=== PATIENT | female | born 1955 | race Caucasian/White ===

== ENCOUNTER 2017-08-12 23:14 | Emergency (ER) | payer MEDICARE ==
[2017-08-12 23:49] LABS: BASOPHILS # (AUTO) 0.1 10^3/uL (0.0-0.1); BASOPHILS % (AUTO) 1.1 %; EOSINOPHILS # (AUTO) 0.2 10^3/uL (0.0-0.7); EOSINOPHILS % (AUTO) 2.8 %; HGB - HEMOGLOBIN 14.4 g/dL (12.0-16.0); LYMPHOCYTES # (AUTO) 2.4 10^3/uL (1.5-3.5); LYMPHOCYTES % (AUTO) 28.7 %; MEAN CORPUSCULAR HEMOGLOBIN 31.3 pg (27.0-31.0); MEAN CORPUSCULAR HGB CONC 34.8 g/dL (32.0-36.0); MEAN CORPUSCULAR VOLUME 89.8 fL (81.0-99.0); MEAN PLATELET VOLUME 8.3 fL (7.9-10.8); MONOCYTES # (AUTO) 0.8 10^3/uL (0.0-1.0); MONOCYTES % (AUTO) 10.1 %; NEUTROPHILS # (AUTO) 4.7 10^3/uL (1.5-6.6); NEUTROPHILS % (AUTO) 57.3 %; PLT - PLATELET COUNT 261 10^3/uL (130-450); RED BLOOD COUNT 4.59 10^6/uL (4.20-5.40); RED CELL DISTRIBUTION WIDTH 12.9 % (12.0-15.0); WHITE BLOOD COUNT 8.3 x10^3/uL (4.8-10.8)
[2017-08-13 00:01] LABS: ALBUMIN 4.5 g/dL (3.2-5.5); ALBUMIN/GLOBULIN RATIO 1.6 (1.0-2.2); BILIRUBIN,TOTAL 0.4 mg/dL (0.2-1.0); CALCIUM 9.3 mg/dL (8.5-10.3); CREATININE 0.6 mg/dL (0.4-1.0); TOTAL PROTEIN 7.4 g/dL (6.7-8.2)
--- NOTE | 2017-08-13 00:05 | ED Physician Documentation ---
History of Present Illness - Stated complaint Stated Complaint: FLANK/ABD PAIN - Chief complaint Chief Complaint: Back Pain - History obtained from History obtained from: Patient - History of Present Illness Timing: How many days ago (3) Pain level now: 5 Improved by: no ameliorating factors Worsened by: no exacerbating factors - Additonal information Additional information: c/o diarrhea x 1 week with chief complaint of bilateral LBP, LLQ pain and nausea x 3 days. 5 days of burning dysuria. Review of Systems Constitutional: denies: Fever, Chills, Sweats Cardiac: reports: Reviewed and negative Respiratory: reports: Reviewed and negative GI: reports: Abdominal Pain, Nausea, Diarrhea. denies: Vomiting, Constipation : reports: Dysuria. 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 - Present Medications Home Medications: Ambulatory Orders Medication Instructions Recorded Confirmed ALPRAZolam [Xanax] 0.25 mg 08/13/14 08/13/14 HYDROcod/ACETAM 5/325 [Vicodin 1 tab 08/13/14 08/13/14 5/325] Oxycodone HCl/Acetaminophen 1 each PO Q6H PRN #20 tablet 08/13/14 [Percocet 5-325 mg Tablet] predniSONE [Deltasone] 40 mg PO DAILY 3 Days tablet 08/13/14 Hydrocodone/Acetaminophen 1 - 2 each PO Q6HR PRN #14 tablet 08/13/17 [Hydrocodon-Acetaminophen 5-325] Ondansetron Odt [Zofran] 4 mg TL Q6H PRN #10 tablet 08/13/17 - Allergies Allergies/Adverse Reactions: Allergies Allergy/AdvReac Type Severity Reaction Status Date / Time Penicillins Allergy Rash Verified 08/12/17 23:22 Sulfa (Sulfonamide Allergy Anaphylaxis Verified 08/12/17 23:22 Antibiotics) - Social History Does the pt smoke?: Yes Smoking Status: Current every day smoker Does the pt drink ETOH?: No Does the pt have substance abuse?: No - Immunizations Immunizations are current?: Yes PD ED PE NORMAL - Vitals Vital signs reviewed: Yes - General General: Alert and oriented X 3, No acute distress, Well developed/nourished - HEENT HEENT: Moist mucous membranes - Neck Neck: Supple, no meningeal sign - Cardiac Cardiac: RRR, No murmur - Respiratory Respiratory: No respiratory distress, Clear bilaterally - Abdomen Abdomen: Normal bowel sounds, Soft, Other (LLQ and periumbilical tenderness to palpation without rebound or guarding) - Back Back: No CVA TTP - Derm Derm: Normal color, Warm and dry Results - Vitals Vitals: Oxygen O2 Source Room air - Labs Labs: Laboratory Tests 08/12/17 08/12/17 08/12/17 23:25 23:40 23:40 WBC 8.3 RBC 4.59 Hgb 14.4 Hct 41.2 MCV 89.8 MCH 31.3 H MCHC 34.8 RDW 12.9 Plt Count 261 MPV 8.3 Neut # 4.7 Lymph # 2.4 [place] # 0.8 Eos # 0.2 Baso # 0.1 Absolute Nucleated RBC 0.00 Nucleated RBC % 0.0 Sodium 136 Potassium 3.8 Chloride 102 Carbon Dioxide 26 Anion Gap 8.0 BUN 14 Creatinine 0.6 Estimated GFR (MDRD) 102 Glucose 110 H Calcium 9.3 Total Bilirubin 0.4 AST 22 ALT 18 Alkaline Phosphatase 48 Total Protein 7.4 Albumin 4.5 Globulin 2.9 Albumin/Globulin Ratio 1.6 Lipase 27 Urine Color YELLOW Urine Clarity CLEAR Urine pH 5.0 Ur Specific [place] >=1.030 H Urine Protein NEGATIVE Urine Glucose (UA) NEGATIVE Urine Ketones 15 H Urine Occult Blood LARGE H Urine Nitrite NEGATIVE Urine Bilirubin NEGATIVE Urine Urobilinogen 0.2 (NORMAL) Ur Leukocyte Esterase NEGATIVE Urine RBC 6-10 H Urine WBC 0-3 Ur Squamous Epith Cells FEW Squamous Urine Bacteria Few Urine Mucus Few Strands Urine Culture Comments NOT INDICATED - Rads (name of study) CT A/P Radiology: Prelim report reviewed, See rad report PD MEDICAL DECISION MAKING - ED course Complexity details: reviewed results, re-evaluated patient, considered differential, d/w patient, d/w family Departure - Departure Disposition: 01 Home, Self Care Clinical Impression: Abdominal pain Qualifiers: Abdominal location: generalized Qualified Code(s): R10.84 - Generalized abdominal pain Condition: Good Instructions: ED Abdominal Pain Unkn Cause, ED Food Poison Or Gastroenteritis Follow-Up: [facility] [Provider Group] [facility] [Provider Group] Prescriptions: Hydrocodone/Acetaminophen [Hydrocodon-Acetaminophen 5-325] 1 - 2 each PO Q6HR PRN #14 tablet PRN Reason: Pain Ondansetron Odt [Zofran] 4 mg TL Q6H PRN #10 tablet PRN Reason: Nausea / Vomiting Forms: Activity restrictions Discharge Date/Time: 08/13/17 02:49
[2017-08-13 00:15] LABS: BILIRUBIN,URINE NEGATIVE (NEGATIVE); GLUCOSE, URINE (UA) NEGATIVE (NEGATIVE); KETONES,URINE (UA) 15 mg/dL (NEGATIVE); LEUKOCYTE ESTERASE, URINE NEGATIVE (NEGATIVE); NITRITE,URINE NEGATIVE (NEGATIVE); OCCULT BLOOD,URINE LARGE (NEGATIVE); PROTEIN,URINE NEGATIVE (NEGATIVE); UROBILINOGEN,URINE 0.2 (NORMAL) E.U./dL (NORMAL)
[2017-08-13 00:16] LABS: CLARITY,URINE CLEAR (CLEAR)
[2017-08-13 00:21] LABS: BACTERIA,URINE Few /HPF (None Seen); MUCUS,URINE Few Strands; SQUAMOUS EPITHELIAL CELL,UR FEW Squamous (<= Few)
[2017-08-13] MEDS ORDERED: KETOROLAC 60 MG/2 ML VIAL IVP STA (00:31)
[2017-08-13] MEDS ORDERED: ONDANSETRON 4 MG/2 ML VIAL IVP STA (00:31)
[2017-08-13] MEDS ORDERED: SODIUM CHLORIDE 0.9% 1,000 ML IV STA (00:31)
[2017-08-13] MEDS ORDERED: ONDANSETRON 4 MG/2 ML VIAL ONE (00:46)
[2017-08-13] MEDS ORDERED: IOPAMIDOL-300 100 ML VIAL ONE (00:56)
[2017-08-13] MEDS ORDERED: IOPAMIDOL-300 100 ML VIAL IVP ONE (01:18)
--- NOTE | 2017-08-13 01:26 | CT Preliminary Report ---
Exam: CT ABDOMEN/PELVIS W/ IMPRESSION: 1. Nonspecific nondilated fluid-filled small bowel loops with liquid stool in the right hemicolon. Mi ld enteritis could have this appearance. 2. Appendix is not well seen. No evidence of appendicitis. 3. No other acute abnormality seen. [facility] SITE ID: [id number]
--- NOTE | 2017-08-13 01:26 | CT Report ---
EXAM: CT ABDOMEN AND PELVIS EXAM DATE: 08/13/2017 01:02 AM. CLINICAL HISTORY: Lower abdominal pain and flank pain. Nausea and vomiting. COMPARISONS: None. TECHNIQUE: Routine helical CT imaging was performed through the abdomen and pelvis. IV contrast: 100 ML ISOVUE 300. Enteric contrast: No. Reconstructions: Coronal and sagittal. In accordance with CT protocol optimization, one or more of the following dose reduction techniques w ere utilized for this exam: automated exposure control, adjustment of mA and/or KV based on patient s ize, or use of iterative reconstructive technique. FINDINGS: Lung Bases: Minimal bibasilar atelectasis. Liver: No focal lesion identified. Gallbladder/Bile Ducts: Status post cholecystectomy. Spleen: Normal. Pancreas: Normal. Adrenal Glands: Normal. Kidneys: Normal. No masses or hydronephrosis. Peritoneal Cavity/Bowel: No bowel obstruction seen. Multiple nondilated fluid-filled small bowel loop s. There is some liquid stool in the right hemicolon as well. No diverticulitis. No lymphadenopathy. No free air or free fluid. Appendix is not well seen. No evidence of appendicitis. Pelvic Organs: Uterus is not seen. Visualized pelvic organs are otherwise unremarkable. Vasculature: Mild atherosclerosis. No aortic aneurysm. Bones: Grade 1 degenerative spondylolisthesis at L5-S1. Mild spinal stenosis. Other: None. IMPRESSION: 1. Nonspecific nondilated fluid-filled small bowel loops with liquid stool in the right hemicolon. Mi ld enteritis could have this appearance. 2. Appendix is not well seen. No evidence of appendicitis. 3. No other acute abnormality seen. [facility] Referring Provider Line: [phone] SITE ID: [id number]
[2017-08-13] MEDS ORDERED: HYDROcod/ACET 5/325 Prepack 4 PO STA (02:29)
[2017-08-13 02:48] VITALS: BP 121/94
== END 2017-08-13 02:49 | disposition home or self-care (01) ==
LOC: ED 23:14
DX: R10.84 Generalized abdominal pain (principal); F17.200 Nicotine dependence, unspecified, uncomplicated
CPT/HCPCS: 36415; 74177; 80053; 81001; 83690; 85025; 96361; 96374; 96375; 99283; 99284; Q9967; 81003; 87086

== ENCOUNTER 2017-12-07 13:52 | Emergency (ER) | payer MEDICARE ==
[2017-12-07] MEDS ORDERED: SODIUM CHLORIDE 0.9% 1,000 ML IV ONE (14:09)
[2017-12-07] MEDS ORDERED: ONDANSETRON 4 MG/2 ML VIAL IVP STA (14:09)
--- NOTE | 2017-12-07 14:13 | ED Physician Documentation ---
History of Present Illness - Stated complaint Stated Complaint: NAUSEATED - Chief complaint Chief Complaint: General - History obtained from History obtained from: Patient, Family - History of Present Illness Timing: Other (This is a 62-year-old woman with no significant past medical history. She had a remote hysterectomy. Over the last year or 2 she has noted skin sensitivity and wondered if she might have fibromyalgia. Then about 4 months ago she developed constant nausea. She was seen here and treated with antiemetics with good relief and CT was done and grossly normal peer a week ago she had a biopsy of a lesion on the left cheek while she was visiting the die designer apprentice for Botox injections. The biopsy came back positive for melanoma. Ever since the biopsy she has had a left retro-orbital headache and pain radiating down into the neck with a feeling of anterior neck swelling and chest pressure. There is no shortness of breath with it. She also notes a 30 pound weight loss over the last couple of years.) Review of Systems Constitutional: reports: Fatigue, Weight Loss. denies: Fever, Chills Ears: denies: Loss of hearing, Ear pain Nose: denies: Rhinorrhea / runny nose, Congestion Throat: denies: Sore throat Cardiac: reports: Chest pain / pressure. 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 - Present Medications Home Medications: Ambulatory Orders Medication Instructions Recorded Confirmed ALPRAZolam [Xanax] 0.25 mg 08/13/14 08/13/14 HYDROcod/ACETAM 5/325 [Vicodin 1 tab 08/13/14 08/13/14 5/325] Oxycodone HCl/Acetaminophen 1 each PO Q6H PRN #20 tablet 08/13/14 [Percocet 5-325 mg Tablet] predniSONE [Deltasone] 40 mg PO DAILY 3 Days tablet 08/13/14 Hydrocodone/Acetaminophen 1 - 2 each PO Q6HR PRN #14 tablet 08/13/17 [Hydrocodon-Acetaminophen 5-325] Ondansetron Odt [Zofran] 4 mg TL Q6H PRN #10 tablet 08/13/17 Zolpidem [Ambien] 5 mg PO HS #30 tablet 12/07/17 - Allergies Allergies/Adverse Reactions: Allergies Allergy/AdvReac Type Severity Reaction Status Date / Time Penicillins Allergy Rash Verified 08/12/17 23:22 Sulfa (Sulfonamide Allergy Anaphylaxis Verified 08/12/17 23:22 Antibiotics) - Social History Does the pt smoke?: Yes Smoking Status: Current every day smoker Does the pt drink ETOH?: No Does the pt have substance abuse?: No - Immunizations Immunizations are current?: Yes PD ED PE NORMAL - Vitals Vital signs reviewed: Yes - General General: Alert and oriented X 3, No acute distress - HEENT HEENT: PERRL, EOMI, Pharynx benign, Other (In the left infraorbital area there is a sutured biopsy lesion without signs of infection. No facial swelling.) - Neck Neck: Supple, no meningeal sign, No bony TTP, Other (I do not appreciate any swelling or adenopathy or glandular hypertrophy.) - Cardiac Cardiac: RRR, No murmur - Respiratory Respiratory: No respiratory distress, Other (Mildly diminished throughout with some rhonchi but nothing focal. Nonlabored.) - Abdomen Abdomen: Normal bowel sounds, Non tender - Back Back: No CVA TTP, No spinal TTP - Derm Derm: Normal color, Warm and dry - Extremities Extremities: No edema, No calf tenderness / cord - Neuro Neuro: Alert and oriented X 3, Normal speech Eye Opening: Spontaneous Motor: Obeys Commands Verbal: Oriented GCS Score: 15 - Psych Psych: Normal mood, Normal affect Results - Vitals Vitals: Vital Signs - 24 hr 12/07/17 14:03 Temperature 37.1 C Heart Rate 103 H Respiratory 18 Rate Blood Pressure 184/107 H O2 Saturation 99 Oxygen O2 Source Room air - EKG (time done) 1416 Rate: Rate (enter#) (95) Rhythm: NSR [place]: Normal Intervals: Normal [place], Other (LAFB) QRS: Normal Ischemia: Normal ST segments Computer interpretation: Agree with computer - Labs Labs: Laboratory Tests 12/07/17 12/07/17 12/07/17 14:20 14:20 14:20 WBC 8.2 RBC 4.61 Hgb 14.3 Hct 41.4 MCV 89.8 MCH 31.0 MCHC 34.6 RDW 13.0 Plt Count 273 MPV 8.2 Neut # (Auto) 4.8 Lymph # (Auto) 2.1 [place] # (Auto) 0.9 Eos # (Auto) 0.2 Baso # (Auto) 0.1 Absolute Nucleated RBC 0.00 Nucleated RBC % 0.0 Sodium 138 Potassium 3.7 Chloride 104 Carbon Dioxide 26 Anion Gap 8.0 BUN 12 Creatinine 0.6 Estimated GFR (MDRD) 102 Glucose 109 H Calcium 9.1 Total Bilirubin 0.5 AST 24 ALT 16 Alkaline Phosphatase 43 Troponin I < 0.04 Total Protein 7.3 Albumin 3.8 Globulin 3.5 Albumin/Globulin Ratio 1.1 Lipase 29 - Rads (name of study) 2v chest Radiology: EMP read contemporaneously (Normal) CT Head Radiology: EMP read contemporaneously (normal) PD MEDICAL DECISION MAKING - Sepsis Event Vital Signs: Vital Signs - 24 hr 12/07/17 14:03 Temperature 37.1 C Heart Rate 103 H Respiratory 18 Rate Blood Pressure 184/107 H O2 Saturation 99 Oxygen O2 Source Room air Departure - Departure Disposition: 01 Home, Self Care Clinical Impression: Skin cancer, Nausea Headache Qualifiers: Headache type: unspecified Headache chronicity pattern: acute headache Intractability: not intractable Qualified Code(s): R51 - Headache Chest pain Qualifiers: Chest pain type: unspecified Qualified Code(s): R07.9 - Chest pain, unspecified Condition: Good Instructions: ED Cephalgia Unspecified Follow-Up: [facility] [Provider Group] Benson Isidro MD [Credentialed Staff Provider] - Prescriptions: Zolpidem [Ambien] 5 mg PO HS #30 tablet Comments: Your blood pressure was elevated today on check into the emergency department. This does not mean that you have hypertension, it is a common phenomenon to come to the emergency department and have elevated blood pressure. I recommend that you see your primary care physician within the week to have it rechecked when you are feeling better.
[2017-12-07 14:31] LABS: BASOPHILS # (AUTO) 0.1 10^3/uL (0.0-0.1); BASOPHILS % (AUTO) 1.1 %; EOSINOPHILS # (AUTO) 0.2 10^3/uL (0.0-0.7); EOSINOPHILS % (AUTO) 2.5 %; HGB - HEMOGLOBIN 14.3 g/dL (12.0-16.0); LYMPHOCYTES # (AUTO) 2.1 10^3/uL (1.5-3.5); LYMPHOCYTES % (AUTO) 26.1 %; MEAN CORPUSCULAR HGB CONC 34.6 g/dL (32.0-36.0); MEAN CORPUSCULAR VOLUME 89.8 fL (81.0-99.0); MEAN PLATELET VOLUME 8.2 fL (7.9-10.8); MONOCYTES # (AUTO) 0.9 10^3/uL (0.0-1.0); MONOCYTES % (AUTO) 11.6 %; NEUTROPHILS # (AUTO) 4.8 10^3/uL (1.5-6.6); NEUTROPHILS % (AUTO) 58.7 %; PLT - PLATELET COUNT 273 10^3/uL (130-450); RED BLOOD COUNT 4.61 10^6/uL (4.20-5.40); WHITE BLOOD COUNT 8.2 x10^3/uL (4.8-10.8)
[2017-12-07 14:46] LABS: ALBUMIN 3.8 g/dL (3.2-5.5); ALBUMIN/GLOBULIN RATIO 1.1 (1.0-2.2); BILIRUBIN,TOTAL 0.5 mg/dL (0.2-1.0); CALCIUM 9.1 mg/dL (8.5-10.3); CREATININE 0.6 mg/dL (0.4-1.0); TOTAL PROTEIN 7.3 g/dL (6.7-8.2)
--- NOTE | 2017-12-07 14:52 | XRAY Report ---
Procedure Date: 12/07/2017 Accession Number: [id number] / [id number] Procedure: XR - Chest 2 View X-Ray CPT Code: 80628 FULL RESULT: EXAM: CHEST RADIOGRAPHY EXAM DATE: 12/07/2017 02:46 PM. CLINICAL HISTORY: Chest pain. COMPARISON: None. TECHNIQUE: 2 views. FINDINGS: Lungs/Pleura: No focal opacities evident. No pleural effusion. No pneumothorax. Normal volumes. Mediastinum: Heart and mediastinal contours are unremarkable. Other: None. IMPRESSION: No acute cardiopulmonary abnormality. [facility]
--- NOTE | 2017-12-07 15:18 | CT Report ---
Procedure Date: 12/07/2017 Accession Number: [id number] / [id number] Procedure: CT - Head W/O CPT Code: FULL RESULT: EXAM: CT HEAD EXAM DATE: 12/07/2017 02:59 PM. CLINICAL HISTORY: L retroorbital RIVERA. COMPARISON: None. TECHNIQUE: Multiaxial CT images were obtained from the foramen magnum to the vertex. Reformats: Sagittal and coronal. IV contrast: None. In accordance with CT protocol optimization, one or more of the following dose reduction techniques were utilized for this exam: automated exposure control, adjustment of mA and/or KV based on patient size, or use of iterative reconstructive technique. FINDINGS: Parenchyma: No intraparenchymal hemorrhage. No evidence of mass, midline shift, or CT findings of infarction. Lewis-white differentiation is distinct. Extraaxial Spaces: Normal for age. No subdural or epidural collections identified. Ventricles: Normal in size and position. Sinuses and Orbits: Imaged paranasal sinuses, orbits, and mastoids show no significant abnormality. Bones: No evidence of fracture or calvarial defect. Other: None. IMPRESSION: Normal head CT. [facility]
[2017-12-07 15:33] VITALS: BP 107/88
== END 2017-12-07 15:32 | disposition home or self-care (01) ==
LOC: ED 13:52
DX: C43.39 Malignant melanoma of other parts of face (principal); R51 Headache; R07.9 Chest pain, unspecified; I44.4 Left anterior fascicular block; R03.0 Elevated blood-pressure reading, without diagnosis of hypertension; E78.00 Pure hypercholesterolemia, unspecified; F17.200 Nicotine dependence, unspecified, uncomplicated
CPT/HCPCS: 36415; 70450; 71046; 80053; 83690; 84484; 85025; 93005; 96374; 99283; 99284

== ENCOUNTER 2018-07-23 11:04 | Outpatient (CLI) | payer MEDICARE | END 2018-07-23 11:05 | disposition home or self-care (01) | LOC: RT 11:04 | PROVIDERS: ATTEND Specialist | DX: R20.8 Other disturbances of skin sensation (principal); L91.0 Hypertrophic scar | CPT/HCPCS: 93005 ==

== ENCOUNTER 2018-09-26 09:58 | Outpatient (CLI) | payer MEDICARE ==
--- NOTE | 2018-09-26 18:02 | XRAY Report ---
Reason: [place],WHEEZING,COUGH,TOBACCO USE Procedure Date: 09/26/2018 Accession Number: [id number] / [id number] Procedure: XR - Chest 2 View X-Ray CPT Code: 19158 FULL RESULT: EXAM: CHEST RADIOGRAPHY. EXAM DATE: 09/26/2018 10:10 AM. CLINICAL HISTORY: [place], wheezing, cough, tobacco use. COMPARISON: CHEST 2 VIEW 12/07/2017 2:40 PM. TECHNIQUE: 2 views. FINDINGS: Lungs/Pleura: No focal opacities evident. No pleural effusion. No pneumothorax. Normal volumes. Mediastinum: Heart and mediastinal contours are unremarkable. Other: Previous distal left clavicle resection suspected. IMPRESSION: Stable negative 2-view chest radiography. [facility]
== END 2018-09-26 09:59 | disposition home or self-care (01) ==
LOC: DI 09:58
PROVIDERS: ATTEND Physician Assistant Medical
DX: R06.2 Wheezing (principal); R05 Cough; Z72.0 Tobacco use
CPT/HCPCS: 71046

== ENCOUNTER 2018-12-04 08:55 | Outpatient (CLI) | payer MEDICARE, MEDICAID ==
[2018-12-04 17:36] LABS: HGB - HEMOGLOBIN 15.2 g/dL (12.0-16.0); MEAN CORPUSCULAR HEMOGLOBIN 31.3 pg (27.0-31.0); MEAN CORPUSCULAR HGB CONC 32.5 g/dL (32.0-36.0); MEAN CORPUSCULAR VOLUME 96.3 fL (81.0-99.0); MEAN PLATELET VOLUME 11.2 fL (7.9-10.8); RED BLOOD COUNT 4.85 10^6/uL (4.20-5.40); RED CELL DISTRIBUTION WIDTH 13.4 % (12.0-15.0); WHITE BLOOD COUNT 7.9 x10^3/uL (4.8-10.8)
[2018-12-04 17:42] LABS: ALBUMIN 4.2 g/dL (3.2-5.5); ALBUMIN/GLOBULIN RATIO 1.4 (1.0-2.2); ALKALINE PHOSPHATASE 49 IU/L (42-121); ALT ALANINE AMINOTRANSFERASE 19 IU/L (10-60); AST ASPARTATE AMINOTRANSFERASE 19 IU/L (10-42); BILIRUBIN,TOTAL 0.3 mg/dL (0.2-1.0); BUN - BLOOD UREA NITROGEN 19 mg/dL (6-20); CALCIUM 9.5 mg/dL (8.5-10.3); CARBON DIOXIDE - CO2 29 mmol/L (21-32); CHLORIDE 100 mmol/L (101-111); CHOLESTEROL 246 mg/dL; CREATININE 0.7 mg/dL (0.4-1.0); GFR - MDRD 85 (>89); GLUCOSE 95 mg/dL (70-100); HDL CHOLESTEROL 61 mg/dL; LDL CHOLESTEROL,CALCULATED 150 mg/dL; LDL/HDL RATIO 2.5 (<4.4); SODIUM 142 mmol/L (135-145); TOTAL PROTEIN 7.3 g/dL (6.7-8.2); VLDL CHOLESTEROL 35 mg/dL
== END 2018-12-04 08:56 | disposition home or self-care (01) ==
LOC: LAB.S 08:55
PROVIDERS: ATTEND Internal Medicine
DX: Z00.00 Encounter for general adult medical examination without abnormal findings (principal); L90.5 Scar conditions and fibrosis of skin; F41.8 Other specified anxiety disorders
CPT/HCPCS: 36415; 80053; 80061; 83721; 84443; 85027

== ENCOUNTER 2019-06-24 16:24 | Emergency (ER) | payer MEDICARE, MEDICAID ==
[2019-06-24 16:48] VITALS: BP 146/105
--- NOTE | 2019-06-24 17:43 | XRAY Report ---
Reason: Trauma, bruising Procedure Date: 06/24/2019 Accession Number: [id number] / [id number] Procedure: XR - Hand 3 View LT CPT Code: Final Report FULL RESULT: EXAM: LEFT HAND RADIOGRAPHY EXAM DATE: 06/24/2019 05:06 PM. CLINICAL HISTORY: Trauma, bruising. COMPARISON: None. TECHNIQUE: 3 views. FINDINGS: Bones: Severe osteopenia. No fractures or bone lesions. Joints: Degenerative changes of left first and second carpometacarpal joints. Soft Tissues: Normal. No soft tissue swelling. IMPRESSION: Severe osteopenia. No acute displaced fracture or malalignment. [facility]
--- NOTE | 2019-06-24 17:46 | XRAY Report ---
Reason: trauma, pain Procedure Date: 06/24/2019 Accession Number: [id number] / [id number] Procedure: XR - Shoulder 3 View LT CPT Code: Final Report FULL RESULT: EXAM: LEFT SHOULDER RADIOGRAPHY EXAM DATE: 06/24/2019 05:08 PM. CLINICAL HISTORY: Trauma, pain. COMPARISON: None. TECHNIQUE: 3 views. FINDINGS: Bones: Widening of left acromio clavicular joint, chronic finding versus related to acute trauma with AC joint separation. To be correlated clinically. Joints: The glenohumeral joint is normal. Soft tissues: The visualized hemithorax is unremarkable. No soft tissue swelling. IMPRESSION: Widening of left acromio clavicular joint, chronic finding versus related to acute trauma with AC joint separation. To be correlated clinically. No acute displaced fracture. [facility]
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
== END 2019-06-24 19:18 | disposition home or self-care (01) ==
LOC: ED 16:24
DX: S60.222A Contusion of left hand, initial encounter (principal); F17.200 Nicotine dependence, unspecified, uncomplicated; S43.402A Unspecified sprain of left shoulder joint, initial encounter; W23.1XXA Caught, crushed, jammed, or pinched between stationary objects, initial encounter; W22.8XXA Striking against or struck by other objects, initial encounter; Y93.89 Activity, other specified
CPT/HCPCS: 99283; 99284

== ENCOUNTER 2019-11-25 10:55 | Outpatient (CLI) | payer MEDICARE, MEDICAID | END 2019-11-25 10:56 | disposition critical access hospital (66) | LOC: EMS 10:55 | PROVIDERS: ATTEND Surgery | DX: R23.2 Flushing (principal); R20.0 Anesthesia of skin; R11.0 Nausea; W57.XXXA Bitten or stung by nonvenomous insect and other nonvenomous arthropods, initial encounter; Y92.007 Garden or yard of unspecified non-institutional (private) residence as the place of occurrence of the external cause | CPT/HCPCS: A0425; A0427 ==

== ENCOUNTER 2019-11-25 11:24 | Emergency (ER) | payer MEDICARE, MEDICAID ==
[2019-11-25] MEDS ORDERED: predniSONE 20 MG TABLET PO STA (11:58)
--- NOTE | 2019-11-25 12:17 | ED Physician Documentation ---
History of Present Illness - Stated complaint Stated Complaint: ALLERGIC REACTION - Chief complaint Chief Complaint: Allergic Rx - History obtained from History obtained from: Patient - History of Present Illness Timing: Today Pain level max: 0 Pain level now: 0 - Additonal information Additional information: 64-year-old female presents to the emergency department stating she was stung by a deer fly today. She states she is allergic to the deer fly. She started having difficulty breathing and hives. Given Benadryl and epinephrine intramuscularly by EMS. She states she is starting to feel better. No current difficulty breathing. No throat swelling. No chest tightness. Better with Benadryl and epinephrine, nothing makes it worse Review of Systems Ten Systems: 10 systems reviewed and negative Constitutional: denies: Fever, Chills Cardiac: denies: Chest pain / pressure, Palpitations Respiratory: denies: Cough GI: denies: Nausea, Vomiting, Diarrhea Skin: denies: Rash Musculoskeletal: denies: Neck pain, Back pain Neurologic: denies: Headache PD PAST MEDICAL HISTORY - Past Medical History Past Medical History: Yes Cardiovascular: High cholesterol Respiratory: Asthma Psych: Anxiety Other Past Medical History: Melanoma - Past Surgical History Past Surgical History: Yes General: 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, 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 Derm: Skin cancer surgery - Present Medications Home Medications: Ambulatory Orders Medication Instructions Recorded Confirmed Albuterol Sulfate [Albuterol 8.5 gm IH 06/24/19 Sulfate Hfa] Fluticasone [Flonase] 1 sprays JUAN DAILY 06/24/19 11/25/19 traZODone [Desyrel] 50 mg PO HS 06/24/19 11/25/19 EPINEPHrine [Epinephrine] 0.3 mg IJ ONCE PRN #1 auto.injct 11/25/19 Omeprazole 10 mg PO DAILY 11/25/19 11/25/19 predniSONE [Prednisone] 40 mg PO DAILY #10 tablet 11/25/19 - Allergies Allergies/Adverse Reactions: Allergies Allergy/AdvReac Type Severity Reaction Status Date / Time Penicillins Allergy Rash Verified 06/24/19 18:57 Sulfa (Sulfonamide Allergy Anaphylaxis Verified 06/24/19 18:57 Antibiotics) - Social History Does the pt smoke?: Yes Smoking Status: Current every day smoker Does the pt drink ETOH?: No Does the pt have substance abuse?: No - Immunizations Immunizations are current?: Yes PD ED PE NORMAL - Vitals Vital signs reviewed: Yes - General General: Alert and oriented X 3, No acute distress - HEENT HEENT: Moist mucous membranes, Pharynx benign, Other (Normal oropharynx. No stridor. No wheezing) - Neck Neck: Supple, no meningeal sign - Cardiac Cardiac: RRR, Strong equal pulses - Respiratory Respiratory: No respiratory distress, Clear bilaterally - Abdomen Abdomen: Soft, Non tender, Non distended - Derm Derm: Warm and dry - Neuro Neuro: Alert and oriented X 3 - Psych Psych: Normal mood, Normal affect Results - Vitals Vitals: Vital Signs - 24 hr 11/25/19 11:24 Temperature 37 C Heart Rate 102 H Respiratory 18 Rate Blood Pressure 147/99 H O2 Saturation 93 Oxygen O2 Source Room air PD MEDICAL DECISION MAKING - ED course Complexity details: considered differential, d/w patient ED course: Patient with an allergic reaction today. Given epinephrine and Benadryl with EMS. Given prednisone here. Monitored in the emergency department with no recurrence. Will prescribe prednisone and an EpiPen for home. Patient counseled regarding signs and symptoms for which I believe and urgent re- evaluation would be necessary. Patient with good understanding of and agreement to plan and is comfortable going home at this time This document was made in part using voice recognition software. While efforts are made to proofread this document, sound alike and grammatical errors may occur. Departure - Departure Disposition: 01 Home, Self Care Clinical Impression: Allergic reaction Qualifiers: Encounter type: initial encounter Qualified Code(s): T78.40XA - Allergy, unspecified, initial encounter Condition: Good Instructions: ED Bite Sting Insect Gen Allergic React Follow-Up: Your,doctor As needed [Other] Prescriptions: EPINEPHrine [Epinephrine] 0.3 mg IJ ONCE PRN #1 auto.injct PRN Reason: Anaphylaxis predniSONE [Prednisone] 40 mg PO DAILY #10 tablet Comments: Return if you worsen. Take the steroids for the next 3 days. You can use Benadryl as well.
[2019-11-25 13:11] VITALS: BP 149/96
== END 2019-11-25 13:10 | disposition home or self-care (01) ==
LOC: EDUNIT# → ED 11:24
DX: T78.40XA Allergy, unspecified, initial encounter (principal)
CPT/HCPCS: 99282; 99283; J7512

== ENCOUNTER 2020-04-14 08:00 | Outpatient (CLI) | payer MEDICARE, MEDICAID | END 2020-04-14 23:59 | disposition home or self-care (01) | LOC: LAB.R 08:00 | PROVIDERS: ATTEND Physician Assistant | DX: R30.0 Dysuria (principal) | CPT/HCPCS: 87086 ==

== ENCOUNTER 2020-04-15 10:40 | Outpatient (CLI) | payer MEDICARE, MEDICAID ==
[2020-04-15 15:42] LABS: BASOPHILS % (AUTO) 0.7 %; EOSINOPHILS # (AUTO) 0.2 10^3/uL (0.0-0.7); EOSINOPHILS % (AUTO) 3.3 %; HGB - HEMOGLOBIN 14.6 g/dL (12.0-16.0); LYMPHOCYTES # (AUTO) 1.7 10^3/uL (1.5-3.5); LYMPHOCYTES % (AUTO) 28.9 %; MEAN CORPUSCULAR HEMOGLOBIN 31.1 pg (27.0-31.0); MEAN CORPUSCULAR HGB CONC 32.4 g/dL (32.0-36.0); MEAN CORPUSCULAR VOLUME 95.7 fL (81.0-99.0); MEAN PLATELET VOLUME 10.5 fL (7.9-10.8); MONOCYTES # (AUTO) 0.6 10^3/uL (0.0-1.0); MONOCYTES % (AUTO) 9.9 %; NEUTROPHILS # (AUTO) 3.3 10^3/uL (1.5-6.6); PLT - PLATELET COUNT 273 10^3/uL (130-450); RED CELL DISTRIBUTION WIDTH 13.2 % (12.0-15.0); WHITE BLOOD COUNT 5.8 x10^3/uL (4.8-10.8)
[2020-04-15 16:15] LABS: ALBUMIN 4.2 g/dL (3.2-5.5); ALBUMIN/GLOBULIN RATIO 1.5 (1.0-2.2); BILIRUBIN,TOTAL 0.5 mg/dL (0.2-1.0); CALCIUM 9.5 mg/dL (8.5-10.3); CREATININE 0.7 mg/dL (0.4-1.0)
== END 2020-04-15 10:41 | disposition home or self-care (01) ==
LOC: LAB.S 10:40
PROVIDERS: ATTEND Physician Assistant
DX: R30.0 Dysuria (principal)
CPT/HCPCS: 36415; 80053; 85025

== ENCOUNTER 2020-07-16 15:03 | Outpatient (CLI) | payer MEDICARE, MEDICAID ==
--- NOTE | 2020-07-16 16:24 | Ultrasound Report ---
PROCEDURE: Pelvic w/Transvaginal INDICATIONS: LACERATION OF VAGINA AND VULVA, POST MENOPAUSAL TECHNIQUE: Real-time scanning was performed of the pelvic organs, with image documentation. Additional endovagi nal scanning was necessary due to incomplete visualization of the adnexal and endometrial structures by transabdominal scanning. COMPARISON: CT abdomen and pelvis 08/13/2017 FINDINGS: No pathologic free abdominal or pelvic fluid. Uterus and ovaries not visible, consistent with the provided clinical history of prior hysterectomy a nd bilateral oophorectomies. No fluid collection or mass in the pelvis identified. IMPRESSION: Unremarkable exam with consistent with prior hysterectomy and BSO. Reviewed by: Robinson Walker MD on 07/16/2020 4:23 PM PDT Approved by: Robinson Walker MD on 07/16/2020 4:23 PM PDT Station ID: [id number]
== END 2020-07-16 15:04 | disposition home or self-care (01) ==
LOC: DI 15:03
PROVIDERS: ATTEND Obstetrics & Gynecology
DX: S31.41XA Laceration without foreign body of vagina and vulva, initial encounter (principal); Z78.0 Asymptomatic menopausal state; Z90.710 Acquired absence of both cervix and uterus; Z90.722 Acquired absence of ovaries, bilateral; Z90.79 Acquired absence of other genital organ(s)

== ENCOUNTER 2020-07-22 10:51 | Outpatient (CLI) | payer MEDICARE, MEDICAID ==
--- NOTE | 2020-07-22 14:42 | DEXA Report ---
PROCEDURE: Dexa Spine and/or Hip INDICATIONS: POST MENOPAUSAL TECHNIQUE: Dual energy x-ray absorptiometry (DXA) was performed on a [employer] System. Regions measur ed are the AP Spine, femoral neck, and if needed forearm. COMPARISON: None. FINDINGS: Lumbar Spine: Bone Mineral Density 0.975 g/cm/cm,T score -1.7, moderate osteopenia Left Hip: Bone Mineral Density 0.692 g/cm/cm,T score -2.5, osteoporosis Left Femoral Neck: Bone Mineral Density 0.697 g/cm/cm, T score -2.5, osteoporosis (T score greater or equal to -1.0: NORMAL) (T score from -1.1 to -2.4: OSTEOPENIA) (T score less than or equal to -2.5 to: OSTEOPOROSIS) Impression: Mild osteoporosis within the left hip and femoral neck. Patients with diagnosis of osteoporosis or osteopenia should have regular bone mineral density assess ment. For those eligible for Medicare, routine testing is allowed once every 2 years. Testing frequ ency can be increased for patients who have rapidly progressing disease or for those who are receivin g medical therapy to restore bone mass. Reviewed by: Melonie Sinha MD on 07/22/2020 2:41 PM PDT Approved by: Melonie Sinha MD on 07/22/2020 2:41 PM PDT Station ID: [id number]
== END 2020-07-22 10:52 | disposition home or self-care (01) ==
LOC: DI 10:51
PROVIDERS: ATTEND Obstetrics & Gynecology
DX: M81.0 Age-related osteoporosis without current pathological fracture (principal); Z78.0 Asymptomatic menopausal state

== ENCOUNTER 2020-10-02 13:29 | Outpatient (CLI) | payer MEDICARE, MEDICAID | END 2020-10-02 13:30 | disposition home or self-care (01) | LOC: EMS 13:29 | DX: R07.9 Chest pain, unspecified (principal) | CPT/HCPCS: A0425; A0427 ==

== ENCOUNTER 2020-10-02 14:03 | Emergency (ER) | payer MEDICARE, MEDICAID ==
[2020-10-02 14:15] VITALS: BP 131/96
--- NOTE | 2020-10-02 14:16 | ED Physician Documentation ---
PD HPI CHEST PAIN - Stated complaint Stated Complaint: CHEST PX - Chief complaint Chief Complaint: Cardiac - History obtained from History obtained from: Patient, EMS - Additional information Additional information: Previously healthy 65-year-old woman with no history of heart disease. Reportedly had a remotely negative stress test per her. Risk factors for heart disease include age and smoking. She had chest tightness all day yesterday associated with some confusion and shortness of breath. Today the confusion is mostly better and the shortness of breath is gone but she had persistent chest tightness and went to an urgent care and was referred here for further evaluation and treatment. She received aspirin and 2 nitroglycerin in route. She is symptom-free on arrival. No pedal edema or calf pain. She has been nauseous with this and fatigue. Review of Systems Ten Systems: 10 systems reviewed and negative Constitutional: reports: Fatigue. denies: Fever, Chills Throat: denies: Sore throat Cardiac: reports: Chest pain / pressure (gone). 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 Derm: Skin cancer surgery - Present Medications Home Medications: Ambulatory Orders Medication Instructions Recorded Confirmed Albuterol Sulfate [Albuterol 8.5 gm IH BID 06/24/19 10/02/20 Sulfate Hfa] Fluticasone [Flonase] 1 sprays JUAN DAILY 06/24/19 10/02/20 traZODone [Desyrel] 50 mg PO HS 06/24/19 10/02/20 EPINEPHrine [Epinephrine] 0.3 mg IJ ONCE PRN #1 auto.injct 11/25/19 10/02/20 - Allergies Allergies/Adverse Reactions: Allergies Allergy/AdvReac Type Severity Reaction Status Date / Time Penicillins Allergy Rash Verified 10/02/20 14:20 Sulfa (Sulfonamide Allergy Anaphylaxis Verified 10/02/20 14:20 Antibiotics) - Social History Does the pt smoke?: Yes Smoking Status: Current every day smoker Does the pt drink ETOH?: No Does the pt have substance abuse?: No - Immunizations Immunizations are current?: Yes PD ED PE NORMAL - Vitals Vital signs reviewed: Yes - General General: Alert and oriented X 3, No acute distress - HEENT HEENT: PERRL, EOMI - Neck Neck: Supple, no meningeal sign, No bony TTP - Cardiac Cardiac: RRR, No murmur - Respiratory Respiratory: No respiratory distress, Clear bilaterally - Abdomen Abdomen: Soft, Non tender - Back Back: No CVA TTP, No spinal TTP - Derm Derm: Normal color, Warm and dry - Extremities Extremities: No edema, No calf tenderness / cord - Neuro Neuro: Alert and oriented X 3, Normal speech - Psych Psych: Normal mood, Normal affect Results - Vitals Vitals: Vital Signs - 24 hr 10/02/20 10/02/20 14:07 14:22 Temperature 36.8 C Heart Rate 94 82 Respiratory 16 20 Rate Blood Pressure 131/96 H O2 Saturation 97 97 Oxygen O2 Source Room air - EKG (time done) 1412 Rate: Rate (enter#) (80) Rhythm: NSR [place]: Normal Intervals: Normal MA, Other (LAFB) QRS: Normal Ischemia: Normal ST segments - Labs Labs: Laboratory Tests 10/02/20 10/02/20 10/02/20 14:25 14:25 14:25 WBC 6.8 RBC 4.66 Hgb 14.8 Hct 43.6 MCV 93.6 MCH 31.8 H MCHC 33.9 RDW 12.7 Plt Count 251 MPV 10.4 Neut # (Auto) 3.7 Lymph # (Auto) 2.2 [place] # (Auto) 0.7 Eos # (Auto) 0.2 Baso # (Auto) 0.1 Absolute Nucleated RBC 0.00 Nucleated RBC % 0.0 Sodium 140 Potassium 3.9 Chloride 99 L Carbon Dioxide 27 Anion Gap 14.0 H BUN 13 Creatinine 0.7 Estimated GFR (MDRD) 85 L Glucose 105 H Calcium 9.3 Total Bilirubin 0.4 AST 19 ALT 17 Alkaline Phosphatase 52 Troponin I High Sens 2.7 Total Protein 7.1 Albumin 4.4 Globulin 2.7 Albumin/Globulin Ratio 1.6 Lipase 26 PD MEDICAL DECISION MAKING - ED course ED course: 65-year-old woman with atypical chest pain of greater than 24 hours duration. Heart score is 2. Biomarkers negative. All but pain-free in the ER. Departure - Departure Disposition: 01 Home, Self Care Clinical Impression: Atypical chest pain Condition: Good Record reviewed to determine appropriate education?: Yes Instructions: ED Chest Pain Atypical Unkn Cause Comments: Return for any new, worsening, or changing symptoms. Follow-up with your doctor on Monday to discuss follow-up stress testing.
--- OUTSIDE RECORDS SUMMARY | 2020-10-02 14:20 | EXTERNAL MEDICAL SUMMARY RPT | Continuity of Care Document ---
:1955 Demographics Phone Unavailable Preferred Language Unknown Marital Status Unknown Restoration Affiliation Unknown Race Unknown Ethnic Group Unknown Author Organization [place] Address [address] [phone] Phone Allergies Encounters Medications Problems Results
[2020-10-02 14:29] LABS: BASOPHILS # (AUTO) 0.1 10^3/uL (0.0-0.1); BASOPHILS % (AUTO) 1.2 %; EOSINOPHILS # (AUTO) 0.2 10^3/uL (0.0-0.7); EOSINOPHILS % (AUTO) 2.6 %; HCT - HEMATOCRIT 43.6 % (37.0-47.0); HGB - HEMOGLOBIN 14.8 g/dL (12.0-16.0); LYMPHOCYTES # (AUTO) 2.2 10^3/uL (1.5-3.5); LYMPHOCYTES % (AUTO) 31.9 %; MEAN CORPUSCULAR HEMOGLOBIN 31.8 pg (27.0-31.0); MEAN CORPUSCULAR HGB CONC 33.9 g/dL (32.0-36.0); MEAN CORPUSCULAR VOLUME 93.6 fL (81.0-99.0); MEAN PLATELET VOLUME 10.4 fL (7.9-10.8); MONOCYTES # (AUTO) 0.7 10^3/uL (0.0-1.0); MONOCYTES % (AUTO) 10.5 %; NEUTROPHILS # (AUTO) 3.7 10^3/uL (1.5-6.6); NEUTROPHILS % (AUTO) 53.7 %; PLT - PLATELET COUNT 251 10^3/uL (130-450); RED BLOOD COUNT 4.66 10^6/uL (4.20-5.40); RED CELL DISTRIBUTION WIDTH 12.7 % (12.0-15.0); WHITE BLOOD COUNT 6.8 x10^3/uL (4.8-10.8)
[2020-10-02 14:46] LABS: ALBUMIN 4.4 g/dL (3.2-5.5); ALBUMIN/GLOBULIN RATIO 1.6 (1.0-2.2); BILIRUBIN,TOTAL 0.4 mg/dL (0.2-1.0); CALCIUM 9.3 mg/dL (8.5-10.3); CREATININE 0.7 mg/dL (0.4-1.0); POTASSIUM 3.9 mmol/L (3.5-5.0); TOTAL PROTEIN 7.1 g/dL (6.7-8.2)
--- NOTE | 2020-10-02 14:46 | XRAY Report ---
PROCEDURE: Chest 1 View X-Ray INDICATIONS: Chest Pain TECHNIQUE: One view of the chest was acquired. COMPARISON: 09/26/2018 FINDINGS: Surgical changes and devices: None. Lungs and pleura: No pleural effusions or pneumothorax. Lungs are clear. Mediastinum: Mediastinal contours appear normal. Heart size is normal. Bones and chest wall: No suspicious bony lesions. Overlying soft tissues appear unremarkable. IMPRESSION: No acute cardiopulmonary disease process. Reviewed by: Tiera Tsai MD, PhD on 10/02/2020 2:45 PM PDT Approved by: Tiera Tsai MD, PhD on 10/02/2020 2:45 PM PDT Station ID: [id number]
== END 2020-10-02 15:24 | disposition home or self-care (01) ==
LOC: EDUNIT# → ED 14:03
DX: R07.89 Other chest pain (principal); F17.200 Nicotine dependence, unspecified, uncomplicated
CPT/HCPCS: 36415; 80053; 83690; 84484; 85025; 93005; 99284

== ENCOUNTER 2022-07-22 09:47 | Outpatient (CLI) | payer MEDICARE, MEDICAID ==
[2022-07-22 14:38] LABS: BASOPHILS # (AUTO) 0.1 10^3/uL (0.0-0.1); BASOPHILS % (AUTO) 0.8 %; EOSINOPHILS # (AUTO) 0.2 10^3/uL (0.0-0.7); EOSINOPHILS % (AUTO) 2.3 %; HCT - HEMATOCRIT 46.4 % (37.0-47.0); HGB - HEMOGLOBIN 14.9 g/dL (12.0-16.0); LYMPHOCYTES # (AUTO) 2.3 10^3/uL (1.5-3.5); LYMPHOCYTES % (AUTO) 31.6 %; MEAN CORPUSCULAR HEMOGLOBIN 31.1 pg (27.0-31.0); MEAN CORPUSCULAR HGB CONC 32.1 g/dL (32.0-36.0); MEAN CORPUSCULAR VOLUME 96.9 fL (81.0-99.0); MEAN PLATELET VOLUME 10.7 fL (7.9-10.8); MONOCYTES # (AUTO) 0.8 10^3/uL (0.0-1.0); MONOCYTES % (AUTO) 10.7 %; NEUTROPHILS % (AUTO) 54.5 %; PLT - PLATELET COUNT 269 10^3/uL (130-450); RED BLOOD COUNT 4.79 10^6/uL (4.20-5.40); RED CELL DISTRIBUTION WIDTH 12.7 % (12.0-15.0); WHITE BLOOD COUNT 7.3 x10^3/uL (4.8-10.8)
[2022-07-22 15:05] LABS: THYROID STIMULATING HORMONE 2.55 uIU/mL (0.34-5.60)
[2022-07-22 15:25] LABS: ALBUMIN 4.4 g/dL (3.2-5.5); ALBUMIN/GLOBULIN RATIO 1.6 (1.0-2.2); ALKALINE PHOSPHATASE 45 IU/L (42-121); ALT ALANINE AMINOTRANSFERASE 18 IU/L (10-60); AST ASPARTATE AMINOTRANSFERASE 20 IU/L (10-42); BILIRUBIN,TOTAL 0.7 mg/dL (0.2-1.0); BUN - BLOOD UREA NITROGEN 14 mg/dL (6-20); CALCIUM 9.2 mg/dL (8.5-10.3); CARBON DIOXIDE - CO2 28 mmol/L (21-32); CHLORIDE 101 mmol/L (101-111); CHOL/HDL RATIO 3.6 (<4.4); CHOLESTEROL 277 mg/dL; CREATININE 0.6 mg/dL (0.4-1.0); GFR - MDRD 101 (>89); GLUCOSE 103 mg/dL (70-100); HDL CHOLESTEROL 76 mg/dL; LDL CHOLESTEROL,CALCULATED 187 mg/dL; LDL/HDL RATIO 2.5 (<4.4); POTASSIUM 4.1 mmol/L (3.5-5.0); SODIUM 138 mmol/L (135-145); TOTAL PROTEIN 7.1 g/dL (6.7-8.2); TRIGLYCERIDES 69 mg/dL; VLDL CHOLESTEROL 14 mg/dL
== END 2022-07-22 09:48 | disposition home or self-care (01) ==
LOC: LAB.S 09:47
PROVIDERS: ATTEND Registered Nurse
DX: E78.5 Hyperlipidemia, unspecified (principal); Z79.899 Other long term (current) drug therapy
CPT/HCPCS: 36415; 80053; 80061; 83721; 84443; 85025

== ENCOUNTER 2022-09-06 09:00 | Outpatient (CLI) | payer MEDICARE, MEDICAID ==
--- NOTE | 2022-09-06 09:35 | CARDIAC PROCEDURE NOTE ---
Stress Test Report Service Date: 09/06/22 Service Time: 09:30 Ordering Provider: Adele Reaves FNP-C Indication for Test: Assess chest discomfort. Significant Medical History: Fern is referred for a treadmill stress echocardiogram today, to assess a symptom complex that includes brief episodes of sharp, lower anterior or posterior chest pain, a different chest heaviness occurring with exertion, brief episodes of lightheadedness, gradually increasing exertional shortness of breath and pervasive fatigue. 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 She notes that in March she had an episode of left chest pain radiating to her arm and jaw, that was so severe initially that she fell to her knees, was nauseated and diaphoretic, then she went to sleep. An hour later she was feeling better and the next day she felt fine. 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 She was seen for evaluation at the [facility] and prescribed daily metoprolol, as needed sublingual nitroglycerin and scheduled to undergo the stress test scheduled today. Since then she describes one episode of chest discomfort that was probably worse than average and included diaphoresis, for which she took a single sublingual nitroglycerin with resolution of symptoms in about 5 minutes. She has not had chest discomfort at rest. She has a long tobacco smoking history of at least 25 years, averaging about half pack per day; she comments that over the past several weeks with the symptoms going on she has been smoking less, probably now about 1/4 pack/day. She tried to quit previously with the assistance of Wellbutrin but had an adverse shaking reaction and has not been trialed on Chantix previously. Cardiac Risk Factors: Positive for smoking history as detailed above, family history of premature coronary artery disease with father having an NC at age 32 and his father having coronary disease that was fatal at midlife. She had a fasting lipid panel in June of this year showing total cholesterol 277, triglycerides 69, HDL cholesterol 76 and LDL cholesterol 187, for which she has not been treated. She has no history of diabetes. She has some concern as to whether she may have elevated blood pressures, seen at some times but not others. Procedure: -Exercise Treadmill Test- After signing informed consent, the patient underwent resting echo imaging and then performed treadmill exercise using a Agustin protocol. The patient exercised for 6 minutes 55 seconds and achieved a peak heart rate of 143 (91 percent predicted maximum heart rate for age), and an estimated workload of 8.4 METS. The test was terminated due to fatigue/shortness of breath and leg heaviness. Resting heart rate: 98 Peak heart rate: 143 Normal response to exercise. Resting BP: 139/97 Peak BP: 180/108 Hypertensive at rest with normal systolic BP increase and abnormal diastolic BP increase in response to exercise. Finger oximeter SpO2 was not recorded at rest, but was 94% in stage I and then dropped in stage II to the range of 85-87% (confirmed with use of a second oximeter). Rhythm during exercise: Sinus rhythm throughout, with rare monomorphic isolated PVCs. Symptoms: She denied chest discomfort throughout the study. EKG at rest showed normal sinus rhythm with left atrial abnormality, borderline left axis deviation and delayed precordial R/S transition (at V5); the latter 2 aspects suggest possible left anterior fascicular block. EKG at peak stress showed intermittent horizontal ST depression near peak exercise, possibly meeting diagnostic EKG criteria for ischemia; however most of the EKG tracings were compromised by technical limitations and preclude a confident interpretation of the ST segments. Echo imaging performed at rest and with stress will be reported separately. ISander MD, was present throughout this treadmill stress study and supervised it in its entirety. Summary: 1) Exercise tolerance slightly above average for age and sex as evidenced by VICKIE of -8.3%. 2) Resting EKG with left atrial abnormality and possible left anterior fascicular block, but with interpretable ST segments. 3) Adequate level of exercise was achieved on this treadmill stress test. 4) Resting elevation of systolic and diastolic BP, with normal systolic and abnormal diastolic BP response to exercise. 5) On highly technically challenged EKG tracings, brief ST depression possibly meeting EKG criteria for ischemia was seen at peak stress. 6) Likely normal resting room air O2 saturation, with clear decrease to the abnormal range (85-87%) with exercise. 7) Echo image interpretation reveals normal left ventricular size, wall thickness and systolic function, with appropriate hyperdynamic augmentation of all segments with exercise, indicating no evidence of prior infarct or inducible ischemia. No significant valvular abnormality or elevation of estimated pulmonary artery systolic pressure seen on screening study. Conclusions and Recommendations: 1) This Agustin protocol treadmill stress echocardiogram is reassuring regarding a lack of symptom or echo evidence of inducible ischemia. 2) The patient was advised of her exertional desaturation and the likelihood that this represents a long-term toxic reaction to ongoing tobacco use. Following the study I was able to contact her primary provider (Adele Reaves) and recommend that she be started on a trial of Chantix, initiate supplemental oxygen for use with significant physical activity and potentially undergo a formal Pulmonary evaluation. 3) Blood pressure was elevated at baseline and there was a considerable increase in diastolic blood pressure with exercise along with a very slow return towards normal in recovery, suggesting that she has hypertension not fully controlled with metoprolol. Thus the patient was encouraged to obtain an arm cuff blood pressure monitor and obtain readings at various times of the day to bring with h er to a visit with her primary provider. I discussed with Ms Reaves that it may be reasonable to consider changing to one of the first-line antihypertensive agents such as amlodipine, an DIANE inhibitor or ARB, or thiazide diuretic.
== END 2022-09-06 09:01 | disposition home or self-care (01) ==
LOC: DI 09:00
PROVIDERS: ATTEND Registered Nurse
DX: R07.9 Chest pain, unspecified (principal); R42 Dizziness and giddiness; R06.02 Shortness of breath; R53.83 Other fatigue; F17.210 Nicotine dependence, cigarettes, uncomplicated; Z82.49 Family history of ischemic heart disease and other diseases of the circulatory system
CPT/HCPCS: 93350

== ENCOUNTER 2022-09-22 12:41 | Outpatient (CLI) | payer MEDICARE, MEDICAID ==
[2022-09-22] MEDS ORDERED: ALBUTEROL 1 PUFF INH STA (15:18)
== END 2022-09-22 12:42 | disposition home or self-care (01) ==
LOC: RT 12:41
PROVIDERS: ATTEND Registered Nurse
DX: J45.909 Unspecified asthma, uncomplicated (principal); F17.200 Nicotine dependence, unspecified, uncomplicated
CPT/HCPCS: 94060; 94729

== ENCOUNTER 2022-10-24 14:30 | Outpatient (CLI) | payer MEDICARE, MEDICAID ==
--- NOTE | 2022-10-24 17:17 | XRAY Report ---
PROCEDURE: Abdomen 2 View X-Ray INDICATIONS: LYMPHADENOPATHY TECHNIQUE: 2 views of the abdomen were acquired. COMPARISON: None. FINDINGS: Surgical changes and devices: Surgical clips are noted in gallbladder fossa.. Bowel: No pneumoperitoneum. Mild fecal stasis in the colon is seen. The bowel gas pattern is nonobs tructive. Soft tissues: No masses; visualized solid organ contours appear normal in size. No suspicious abdom inal calcifications. Bones: No suspicious bony abnormalities. IMPRESSION: Mild constipation. No bowel obstruction or gross free air. No gross renal calcifications. Reviewed by: Cezar Kelly MD on 10/24/2022 5:16 PM PDT Approved by: Cezar Kelly MD on 10/24/2022 5:16 PM PDT Station ID: [id number]
--- NOTE | 2022-10-24 17:17 | XRAY Report ---
PROCEDURE: Chest 2 View X-Ray INDICATIONS: LYMPHADENOPATHY TECHNIQUE: 2 views of the chest were acquired. COMPARISON: 10/02/2020. FINDINGS: Surgical changes and devices: None. Lungs and pleura: No pleural effusions or pneumothorax. Lungs are clear. Mediastinum: Mediastinal contours appear normal. Heart size is normal. Bones and chest wall: No suspicious bony lesions. Overlying soft tissues appear unremarkable. IMPRESSION: No acute cardiopulmonary process. Reviewed by: Cezar Kelly MD on 10/24/2022 5:16 PM PDT Approved by: Cezar Kelly MD on 10/24/2022 5:16 PM PDT Station ID: [id number]
== END 2022-10-24 14:31 | disposition home or self-care (01) ==
LOC: DI.S 14:30
PROVIDERS: ATTEND Registered Nurse
DX: R59.1 Generalized enlarged lymph nodes (principal); M54.50 Low back pain, unspecified; R53.83 Other fatigue; R14.0 Abdominal distension (gaseous); K59.00 Constipation, unspecified

== ENCOUNTER 2022-10-28 11:22 | Outpatient (CLI) | payer MEDICARE, MEDICAID ==
[2022-10-29 05:12] LABS: HCV AB Non Reactive (Non Reactive); RPR Non Reactive (Non Reactive)
== END 2022-10-28 11:23 | disposition home or self-care (01) ==
LOC: LAB.S 11:22
PROVIDERS: ATTEND Registered Nurse
DX: R59.1 Generalized enlarged lymph nodes (principal); R14.0 Abdominal distension (gaseous); R53.83 Other fatigue
CPT/HCPCS: 81599; 86480; 86592; 86803; 87536

== ENCOUNTER 2022-11-10 10:13 | Outpatient (CLI) | payer MEDICARE, MEDICAID ==
--- NOTE | 2022-11-11 08:51 | Mammography Report ---
BILATERAL DIGITAL SCREENING MAMMOGRAM 3D/2D WITH AUGMENTATION: 11/10/2022 CLINICAL: Routine screening. Family history of breast cancer. Baseline exam. No prior exams were available for comparison. There are scattered areas of fibroglandular density in both breasts (category b / 25%-50% glandular t issue). Bilateral breast implants are present. No significant masses, calcifications, or other findings are seen in either breast. IMPRESSION: NEGATIVE There is no mammographic evidence of malignancy. A 1 year screening mammogram is recommended. Based on the Tyrer Cuzick model (a risk assessment model) the patients lifetime risk is 3.4% and her 10 year risk is 1.6%. According to the ACR, ACS, and NCCN guidelines, an annual breast MRI exam sarah g with mammogram is recommended if the patients lifetime risk is 20% or greater. This exam was interpreted at Station ID: [id number]. NOTE: For mammograms, a report in lay terms will be sent to the patient. Approximately 15% of breast malignancies will not be visualized mammographically. In the management of a palpable breast mass, a negative mammogram must not discourage biopsy of a clinically suspicious lesion. Electronically Signed By: Cameron woods/dev:11/10/2022 15:41:05 letter sent: No_Letter ACR BI-RADS Category 1: Negative 3341F PARENCHYMAL PATTERN: (A) - The breast(s) demonstrate(s) scattered fibroglandular densities. BI-RADS CATEGORY: (1) - 1 Mammogram [id number] 1 year screening LATERALITY: (B)
== END 2022-11-10 10:14 | disposition home or self-care (01) ==
LOC: DI.S 10:13
PROVIDERS: ATTEND Registered Nurse
DX: Z12.31 Encounter for screening mammogram for malignant neoplasm of breast (principal); Z80.3 Family history of malignant neoplasm of breast

== ENCOUNTER 2022-11-12 12:39 | Outpatient (CLI) | payer MEDICARE, MEDICAID ==
--- NOTE | 2022-11-12 20:23 | Ultrasound Report ---
PROCEDURE: Abdomen Complete INDICATIONS: LYMPHADENOPATHY,ABD BLOATING TECHNIQUE: Real-time scanning was performed of the abdominal and retroperitoneal organs, with image documentatio n. COMPARISON: CT abdomen and pelvis dated 08/13/2017. FINDINGS: Liver: Liver is normal in size and homogeneous in echotexture. Gallbladder: Status post cholecystectomy Biliary ducts: Intrahepatic bile ducts are non-dilated. Extrahepatic bile duct caliber measures 6 m m. Normal is 6-7 mm or less in diameter, or 10 mm or less post-cholecystectomy. Pancreas: Visualized portions of the pancreas are sonographically normal. Spleen: Spleen is normal in size and homogeneous in echotexture. Kidneys: Kidneys are normal in size and echotexture. Right kidney measures 11.2 cm long; left kidne y measures 11.95 cm long. No hydronephrosis or nephrolithiasis. No solid masses. No complex renal c ystic lesions which require follow-up. Aorta: Visualized aorta is normal in caliber at less than 3 cm. Iliacs: Proximal common iliac arteries are normal in caliber at less than 2.5 cm. IVC: Intrahepatic inferior vena cava is patent. Miscellaneous: No free abdominal fluid. IMPRESSION: Unremarkable abdominal ultrasound. Status post cholecystectomy. Reviewed by: Cameron Larkin MD on 11/12/2022 7:21 PM FARIDA Approved by: Cameron Larkin MD on 11/12/2022 7:21 PM AKAIDEE Station ID: [id number]
--- NOTE | 2022-11-12 20:25 | Ultrasound Report ---
PROCEDURE: Pelvic w/Transvaginal INDICATIONS: LYMPHADENOPATHY,ABD BLOATING TECHNIQUE: Real-time scanning was performed of the pelvic organs, with image documentation. Additional endovagi nal scanning was necessary due to incomplete visualization of the adnexal and endometrial structures by transabdominal scanning. COMPARISON: None. FINDINGS: Uterus: Status post hysterectomy Ovaries: Status post bilateral oophorectomy. Other: No pathologic free abdominal or pelvic fluid. No suspicious pelvis masses. No adenopathy. IMPRESSION: Status post hysterectomy and bilateral oophorectomy. No suspicious mass lesion. No adenopathy. No pat hologic pelvic free fluid. Reviewed by: Cameron Larkin MD on 11/12/2022 7:24 PM FARIDA Approved by: Cameron Larkin MD on 11/12/2022 7:24 PM AKAIDEE Station ID: [id number]
== END 2022-11-12 12:40 | disposition home or self-care (01) ==
LOC: DI 12:39
PROVIDERS: ATTEND Registered Nurse
DX: R59.1 Generalized enlarged lymph nodes (principal); M54.50 Low back pain, unspecified; R53.83 Other fatigue; R14.0 Abdominal distension (gaseous); Z90.710 Acquired absence of both cervix and uterus; Z90.722 Acquired absence of ovaries, bilateral; Z90.49 Acquired absence of other specified parts of digestive tract

== ENCOUNTER 2023-04-29 10:54 | Emergency (ER) | payer MEDICARE, MEDICAID ==
--- NOTE | 2023-04-29 12:22 | XRAY Report ---
PROCEDURE: Shoulder 2+V LT INDICATIONS: sprain TECHNIQUE: 2 views of the shoulder were acquired. COMPARISON: Chest radiograph 10/24/2022 FINDINGS: Bones: Mild glenohumeral degenerative changes. No displaced fracture or acute dislocation. Chronic a ppearing widening of the acromioclavicular interval. The coracoclavicular interval appears within nor mal limits. Soft tissues: No suspicious calcifications. IMPRESSION: Mild glenohumeral degenerative changes. No acute radiographic abnormality. If there is high concern f or occult injury, consider repeat radiography or cross-sectional imaging. Chronic appearing AC interval finding, likely postoperative. Reviewed by: Marcus Thomas MD on 04/29/2023 12:21 PM PST Approved by: Marcus Thomas MD on 04/29/2023 12:21 PM PST Station ID: [id number]
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
[2023-04-29] MEDS ORDERED: HYDROmorphone 1 MG/ML CARPUJECT IM STA (12:50)
--- NOTE | 2023-04-29 15:30 | CT Report ---
PROCEDURE: UPPER EXTREMITY WO - LT INDICATIONS: pain, poor ROM, multiple prior dislocations/surger TECHNIQUE: Noncontrast 2 mm axial sections were acquired through the elbow joint, with coronal and sagittal refo rmats. For radiation dose reduction, the following was used: automated exposure control, adjustment of mA and/or kV according to patient size. COMPARISON: None. FINDINGS: Image quality: Diagnostic Bones: Likely postsurgical chronic widening of the AC interval. Possible small Hill-Sachs deformity, given provided history of dislocation. Slight superior subluxation of humeral head. The rotator cuff is not well evaluated on this study. Mild glenohumeral degenerative changes. Soft tissues: There is a small subcutaneous calcification in the left upper back. The partially visua lized left lung is unremarkable. There is emphysematous changes. Partially seen breast implant. IMPRESSION: Mild glenohumeral degenerative changes. Slight superior subluxation of the humeral head may be seen with rotator cuff pathology. Consider MRI or musculoskeletal ultrasound to further evaluate. A CT art hrogram could also be performed if those are not available. Acromioclavicular suspected postsurgical changes. Other findings as above. Reviewed by: Marcus Thomas MD on 04/29/2023 3:29 PM PST Approved by: Marcus Thomas MD on 04/29/2023 3:29 PM PST Station ID: [id number]
[2023-04-29 15:36] VITALS: BP 130/88; O2SAT 98
== END 2023-04-29 15:33 | disposition home or self-care (01) ==
LOC: ED 10:54
DX: S49.92XA Unspecified injury of left shoulder and upper arm, initial encounter (principal); X50.0XXA Overexertion from strenuous movement or load, initial encounter; Y93.F2 Activity, caregiving, lifting; F17.200 Nicotine dependence, unspecified, uncomplicated
CPT/HCPCS: 73030; 73200; 96372; 99283; J1170

== ENCOUNTER 2023-08-12 18:55 | Outpatient (CLI) | payer MEDICARE, MEDICAID | END 2023-08-12 18:56 | disposition critical access hospital (66) | LOC: EMS 18:55 | DX: R55 Syncope and collapse (principal) | CPT/HCPCS: A0425; A0427 ==

== ENCOUNTER 2023-08-12 19:19 | Emergency (ER) | payer MEDICARE, MEDICAID ==
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
[2023-08-12 20:03] LABS: BASOPHILS # (AUTO) 0.1 10^3/uL (0.0-0.1); BASOPHILS % (AUTO) 1.2 %; EOSINOPHILS # (AUTO) 0.2 10^3/uL (0.0-0.7); EOSINOPHILS % (AUTO) 3.4 %; HCT - HEMATOCRIT 42.7 % (37.0-47.0); HGB - HEMOGLOBIN 14.3 g/dL (12.0-16.0); LYMPHOCYTES # (AUTO) 2.6 10^3/uL (1.5-3.5); LYMPHOCYTES % (AUTO) 43.8 %; MEAN CORPUSCULAR HGB CONC 33.5 g/dL (32.0-36.0); MEAN CORPUSCULAR VOLUME 95.5 fL (81.0-99.0); MEAN PLATELET VOLUME 10.6 fL (7.9-10.8); MONOCYTES # (AUTO) 0.5 10^3/uL (0.0-1.0); MONOCYTES % (AUTO) 9.1 %; NEUTROPHILS # (AUTO) 2.5 10^3/uL (1.5-6.6); NEUTROPHILS % (AUTO) 42.3 %; PLT - PLATELET COUNT 263 10^3/uL (130-450); RED BLOOD COUNT 4.47 10^6/uL (4.20-5.40); RED CELL DISTRIBUTION WIDTH 12.9 % (12.0-15.0); WHITE BLOOD COUNT 5.9 x10^3/uL (4.8-10.8)
[2023-08-12 20:08] LABS: ALBUMIN 4.4 g/dL (3.2-5.5); ALBUMIN/GLOBULIN RATIO 1.8 (1.0-2.2); BILIRUBIN,TOTAL 0.2 mg/dL (0.2-1.0); CALCIUM 9.4 mg/dL (8.5-10.3); CREATININE 0.5 mg/dL (0.6-1.3); ETOH - ETHANOL 143.8 mg/dL; POTASSIUM 3.7 mmol/L (3.5-4.5); TOTAL PROTEIN 6.8 g/dL (6.4-8.9)
--- NOTE | 2023-08-12 21:22 | CT Report ---
PROCEDURE: Head WO INDICATIONS: syncope TECHNIQUE: Noncontrast 4.5 mm thick angled axial sections acquired from the foramen magnum to the vertex. For r adiation dose reduction, the following was used: automated exposure control, adjustment of mA and/or kV according to patient size. COMPARISON: None. FINDINGS: Image quality: Excellent. CSF spaces: Basal cisterns are patent. No extra-axial fluid collections. Ventricles are normal in size and shape. Brain: No midline shift. No intracranial masses or hemorrhage. Lewis-white matter interface is norm al. Skull and face: Calvarium and visualized facial bones are intact, without suspicious lesions. Sinuses: Visualized sinuses and mastoids are clear. IMPRESSION: No acute intracranial pathology. Reviewed by: Zoltan Arroyo MD on 08/12/2023 9:20 PM PDT Approved by: Zoltan Arroyo MD on 08/12/2023 9:20 PM PDT Station ID: [id number]
--- NOTE | 2023-08-12 21:25 | XRAY Report ---
PROCEDURE: Chest 2V INDICATIONS: syncope TECHNIQUE: 2 views of the chest were acquired. COMPARISON: Two-view chest 10/24/2022.. FINDINGS: Surgical changes and devices: None. Lungs and pleura: No pleural effusions or pneumothorax. Lungs are clear. Mediastinum: Mediastinal contours appear normal. Heart size is normal. Bones and chest wall: No suspicious bony lesions. Overlying soft tissues appear unremarkable. IMPRESSION: No acute cardiopulmonary process. No trauma from syncopal episode. Reviewed by: Zoltan Arroyo MD on 08/12/2023 9:24 PM PDT Approved by: Zoltan Arroyo MD on 08/12/2023 9:24 PM PDT Station ID: [id number]
[2023-08-12 22:19] VITALS: BP 128/90; O2SAT 96
== END 2023-08-12 22:18 | disposition home or self-care (01) ==
LOC: EDUNIT# → ED 19:19
DX: R55 Syncope and collapse (principal); R68.83 Chills (without fever); R11.10 Vomiting, unspecified; F17.200 Nicotine dependence, unspecified, uncomplicated
CPT/HCPCS: 36415; 70450; 71046; 80053; 83690; 84443; 85025; 93005; 99284; G0480; 82077